=== PATIENT | female | born 1980 | race Two or more races ===

== ENCOUNTER 2023-06-27 06:26 | Day surgery (SDC) | payer OTHER ==
[2023-06-25 12:03] LABS: HEMOGLOBIN 13.2 g/dL (12.0-15.00); MEAN CELL VOLUME 83.7 fL (80.00-100.00); MEAN CORPUSCULAR HEMOGLOBIN 27.6 pg (27.00-32.0); MEAN CORPUSCULAR HGB CONC 32.9 g/dl (32.0-36.0); PLATELET COUNT 214 K/uL (150-450); RED BLOOD COUNT 4.78 M/uL (4.00-6.00); RED CELL DISTRIBUTION WIDTH 15.8 % (11.5-14.5)
[2023-06-25 12:26] LABS: INR 0.99; PARTIAL THROMBOPLASTIN TIME 28.2 SECONDS (22.0-34.0); PROTHROMBIN TIME 10.4 SECONDS (9.0-11.5)
[2023-06-25 12:47] LABS: ALBUMIN 4.2 gm/dL (3.4-5.0); BILIRUBIN TOTAL 0.51 mg/dL (0.3-1.2); CALCIUM 9.6 mg/dL (8.5-10.1); CREATININE SERUM 0.57 mg/dL (0.55-1.02); GFR 115.22; GLOBULINA 2.9 G/DL (2.4-3.5); POTASSIUM 4.46 mEq/L (3.5-5.1); TOTAL PROTEIN 7.1 gm/dL (6.4-8.2)
[~2023-06-27] VITALS: Ht 177.8 cm; Wt 86.2 kg
[~2023-06-27 06:26] MED LIST: SYNTHROID125 MCG PO
[2023-06-27] MEDS ORDERED: POVIDONE-IODINE 118 ML BOTT TOP ONE ×2 (11:43→12:00)
== END 2023-06-27 21:00 | disposition home or self-care (01) ==
LOC: CIR.AMB 06:26
PROVIDERS: ATTEND Obstetrics & Gynecology Maternal & Fetal Medicine
DX: N84.0 Polyp of corpus uteri (principal)